=== PATIENT | female | born 1980 | race African-American/Black ===

== ENCOUNTER 2016-09-15 22:31 | Emergency (ER) | payer OTHER, MEDICAID ==
[~2016-09-15] VITALS: Ht 177.8 cm; Wt 88.0 kg
[~2016-09-15 22:31] MED LIST: CHLO.12%30 SSP; CLIN150 PO; DICL50TA2 PO; IBUP-232 PO
[2016-09-15 23:00] VITALS: BP 132/81; PULSE 89; RESP 16; TEMP 97.7; O2SAT 97
[2016-09-15] MEDS ORDERED: ULTR50TA5 PO (23:29)
[2016-09-15] MEDS ORDERED: IBUP800T23 PO (23:29)
[2016-09-15] MEDS ORDERED: ROBA750T PO (23:29)
[2016-09-15] MEDS ORDERED: ACETAMINOPHEN/HYDROcodone 325 MG/5 MG TAB PO ONE (23:30)
[2016-09-15] MEDS ORDERED: NAPROXEN 500 MG TAB PO ONE (23:30)
[2016-09-15] MEDS ORDERED: CYCLOBENZAPRINE HCL 10 MG TAB PO ONE (23:30)
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
== END 2016-09-16 00:48 | disposition home or self-care (01) ==
LOC: NEPB 22:31
DX: S16.1XXA Strain of muscle, fascia and tendon at neck level, initial encounter (principal); M25.512 Pain in left shoulder; M25.511 Pain in right shoulder; K08.89 Other specified disorders of teeth and supporting structures; D64.9 Anemia, unspecified; V43.52XA Car driver injured in collision with other type car in traffic accident, initial encounter; Y92.410 Unspecified street and highway as the place of occurrence of the external cause
CPT/HCPCS: 72040; 99284

== ENCOUNTER 2017-01-31 10:00 | Emergency (ER) | payer MEDICAID, OTHER ==
[~2017-01-31] VITALS: Ht 177.8 cm; Wt 91.0 kg
[~2017-01-31 10:00] MED LIST changes: +IBUP800T23 PO; +ROBA750T PO; +ULTR50TA5 PO
[2017-01-31 10:09] VITALS: BP 119/89; PULSE 88; RESP 20; TEMP 96.8; O2SAT 98
[2017-01-31] MEDS ORDERED: POLY10O LEFT EYE (10:09)
--- NOTE | 2017-01-31 10:10 | PD ---
HPI Chief Complaint: Eye Problems/Injury Time Seen by Provider: 10:09 Travel History International Travel<30 days: No Contact w/Intl Traveler<30days: No Traveled to known affect area: No History of Present Illness HPI 36-year-old female presents to emergency Department with complaint of waking up this morning with her left eye crusted shut. Reports itchiness to the eye. Denies injury or trauma to the eye. Denies known foreign body. Denies eye pain. Denies change in vision. Denies fever, vomiting. No one else with similar symptoms. Has not taken any medications or tried any treatments to alleviate her symptoms. Has no other medical complaints. Allergies to lidocaine, Novocain, penicillin. No other modifying factors or associated signs and symptoms. PFSH Past Medical History Anemia: Yes Cardiovascular Problems: Yes (HTN) Headaches: Yes Neurologic: Yes (pinched nerve in head) Immunizations Current: Yes ?: Not LMP: 01/29/17 : 2 Para: 2 Ovarian Cysts: Yes Tubal Ligation: Yes Past Surgical History Section: Yes Social History Alcohol Use: No Tobacco Use: No Substance Use: No Allergies-Medications (Allergen,Severity, Reaction): Coded Allergies: Lidocaine (Verified Allergy, Intermediate, HIVES, 09/15/16) Penicillin (Verified Allergy, Intermediate, HIVES, 09/15/16) Uncoded Allergies: NOVACAINE (Allergy, Intermediate, RASH, ITCHING, 03/25/14) Reported Meds & Prescriptions Reported Meds & Active Scripts Active Polytrim Opth Drops (Polymyxin/Trimethoprim Sulfate) 10,000-0.1 Unit/Ml-% Soln 2 Drop LEFT EYE Q6HR 7 Days Ibuprofen 800 Mg Tab 800 Mg PO Q8H PRN Ultram (Tramadol HCl) 50 Mg Tab 50-100 Mg PO Q6H PRN Robaxin (Methocarbamol) 750 Mg Tab 1,500 Mg PO TID 7 Days Diclofenac Potassium 50 Mg Tab 1 Tab PO Q8 PRN Peridex Oral Rinse (Chlorhexidine Gluconate) 0.12 % Jeni 15 Ml SSP BID 7 Days Cleocin (Clindamycin HCl) 150 Mg Cap 300 Mg PO Q6 7 Days Motrin (Ibuprofen) 600 Mg Tab 600 Mg PO QID GIVE WITH FOOD Review of Systems Except as stated in HPI: all other systems reviewed are Neg Physical Exam Narrative GENERAL: Well-nourished, well-developed female patient, in no acute distress; afebrile, nontoxic-appearing SKIN: Warm and dry. HEAD: Atraumatic. Normocephalic. EYES: Pupils equal and round at 3 mm with brisk reaction. PERRLA. EOMI. left lid eversion with no foreign body noted. Left eye without scleral erythema and without lid edema. No orbital tenderness, erythema or cellulitis. Left eye without photophobia. No consensual photophobia. No scleral icterus. No drainage noted. ENT: Mucosa pink and moist. Airway patent. NECK: Trachea midline. CARDIOVASCULAR: Regular rate. RESPIRATORY: No accessory muscle use. GASTROINTESTINAL: Flat. NEUROLOGICAL: Awake and alert. Oriented 3. No obvious cranial nerve deficits. Motor grossly within normal limits. Normal speech. PSYCHIATRIC: Appropriate mood and affect; insight and judgment normal. Data Data Last Documented VS Vital Signs Date Time Temp Pulse Resp B/P Pulse Ox O2 Delivery O2 Flow Rate FiO2 01/31/17 10:09 96.8 88 20 119/89 98 Room Air [facility] Medical Decision Making Medical Screen Exam Complete: Yes Emergency Medical Condition: Yes Medical Record Reviewed: Yes Differential Diagnosis Allergic conjunctivitis, bacterial conjunctivitis, less likely corneal abrasion Narrative Course 36-year-old female with possible left eye bacterial conjunctivitis. Eye exam is unremarkable. I'll treat patient with antibiotic eyedrops. Polytrim eyedrops prescribed for home. Patient verbalizes understanding and agreement with treatment plan. Patient is medically cleared and stable for discharge. Discussed reasons to return to the emergency department. Instructed patient to follow up with primary care provider. Patient agrees with treatment plan. The patients vital signs are stable and the patient is stable for outpatient follow- up and treatment. Patient discharged home, stable and in no acute distress. Diagnosis Primary Impression: Conjunctivitis, left eye Qualified Code: H10.9 - Conjunctivitis of left eye, unspecified conjunctivitis type Referrals: Primary Care Physician Patient Instructions: Conjunctivitis (ED), General Instructions Departure Forms: Tests/Procedures, Work Release Enter return to work date: February 01, 2017 Additional Instructions: Conjunctivitis is contagious Use antibiotic eye drops as prescribed Apply warm or cool compresses to both eyes for a few minutes several times daily to minimize irritation Avoid triggers, such as allergens, that may irritate your eyes Wash your hands frequently Do not share washcloths, towels, pillows, or any other material that has touched your eyes with any other household members Follow-up with your primary care provider Follow-up with ophthalmology as needed Return to the emergency department immediately with worsening of symptoms Med/Other Pt SpecificInfo: Prescription(s) given Scripts Polymyxin B-Trimethoprim Opth Drops (Polytrim Opth Drops)10,000-0.1 Unit/Ml-% Soln2 Drop LEFT EYE Q6HR 7 Days Ref 0 Prov:Maria Teresa Damian 01/31/17 Disposition: 01 DISCHARGE HOME Condition: Stable Maria Teresa Damian January 31, 2017 10:10
[2017-01-31] MEDS ORDERED: HYDR12.57 PO (10:28)
== END 2017-01-31 10:27 | disposition home or self-care (01) ==
LOC: NEPK 10:00
DX: H10.9 Unspecified conjunctivitis (principal); I10 Essential (primary) hypertension; Z86.2 Personal history of diseases of the blood and blood-forming organs and certain disorders involving the immune mechanism; Z86.69 Personal history of other diseases of the nervous system and sense organs
CPT/HCPCS: 99283